=== PATIENT | female | born 1970 | race Caucasian/White ===

== ENCOUNTER 2018-07-24 19:02 | Emergency (ER) | payer OTHER ==
--- NOTE | 2018-07-24 19:36 | PDOC ---
Rapid Medical Evaluation Chief Complaint: Pain Time Seen by Provider: 07/24/18 19:34 Medical Evaluation: Allergies Allergy/AdvReac Type Severity Reaction Status Date / Time contrast Allergy Uncoded 06/03/16 09:45 07/24/18 19:35 I have performed a brief in-person evaluation of this patient. The patient presents with a chief complaint of:dysuria x 2 days. H/o HTN Pertinent physical exam findings:Unremarkable I have ordered the following:ua/cx/upreg The patient will proceed to the ED for further evaluation Discharge Disposition - Diagnosis Dysuria - Referrals - Patient Instructions - Post Discharge Activity
--- NOTE | 2018-07-24 20:18 | PDOC ---
History of Present Illness - General Chief Complaint: Pain Stated Complaint: ABD PAIN Time Seen by Provider: 07/24/18 19:34 - History of Present Illness Initial Comments: 07/24/18 20:17 47-year-old female without comorbidities presents for evaluation of dysuria times one week without systemic symptoms Past History - Past Medical History Allergies/Adverse Reactions: Allergies Allergy/AdvReac Type Severity Reaction Status Date / Time contrast Allergy Uncoded 07/24/18 19:36 Home Medications: Ambulatory Orders Labetalol HCl 100 mg PO ASDIR 07/24/18 Nitrofurantoin Monohyd/M-Cryst [Macrobid -] 100 mg PO BID #14 capsule 07/24/18 COPD: No - Surgical History Abdominal Surgery: Yes ([facility]) - Suicide/Smoking/Psychosocial Hx Smoking History: Never smoked Have you smoked in the past 12 months: No Information on smoking cessation initiated: No Hx Alcohol Use: No Drug/Substance Use Hx: No Substance Use Type: None Review of Systems - Review of Systems Constitutional: No: Fever : Yes: Dysuria *Physical Exam - Vital Signs Last Vital Signs Temp Pulse Resp BP Pulse Ox 98.4 F 61 18 122/82 100 07/24/18 19:33 07/24/18 19:33 07/24/18 19:33 07/24/18 19:33 07/24/18 19:33 - Physical Exam Comments: 07/24/18 20:17 HEAD: NC/AT EYES: Conjuntiva clear MS: Full ROM in all joints without edema NEUROLOGIC: No gross sensory or motor deficits, NVID SKIN: Normal color and temperature no lesions or rashes Moderate Sedation - Procedure Monitoring Vital Signs: Procedure Monitoring Vital Signs Temperature 98.4 F 07/24/18 19:33 Pulse Rate 61 07/24/18 19:33 Respiratory Rate 18 07/24/18 19:33 Blood Pressure 122/82 07/24/18 19:33 O2 Sat by Pulse Oximetry (%) 100 07/24/18 19:33 *DC/Admit/Observation/Transfer Diagnosis at time of Disposition: Dysuria, UTI (urinary tract infection) - Discharge Dispostion Disposition: HOME Condition at time of disposition: Stable Decision to Admit order: No - Prescriptions Prescriptions: Nitrofurantoin Monohyd/M-Cryst [Macrobid -] 100 mg PO BID #14 capsule - Referrals Referrals: Xiomara Quiros MD [Staff Physician] - - Patient Instructions Printed Discharge Instructions: Urinary Tract Infection Additional Instructions: Is take the antibiotic as directed return to the emergency room should symptoms worsen or go unresolved and follow-up with the primary care physician one to 2 days - Post Discharge Activity
[2018-07-24 20:21] VITALS: BP 122/82; PULSE 61; TEMP 98.4; BMI 22.2
[2018-07-24 20:27] LABS: URINE APPEARANCE SLCLOUDY; URINE BILIRUBIN NEGATIVE (<2.0 mg/dL); URINE COLOR YELLOW; URINE GLUCOSE (UA) NEGATIVE (NEGATIVE); URINE KETONE NEGATIVE (NEGATIVE); URINE LEUK ESTERASE NEGATIVE (NEGATIVE); URINE NITRITE POSITIVE (NEGATIVE); URINE PROTEIN NEGATIVE (NEGATIVE)
[2018-07-24 20:28] LABS: HCG,QUALITATIVE URINE Negative
[2018-07-24 20:53] LABS: EPI CELLS RARE /HPF (FEW); URINE BACTERIA RARE /hpf (NONE SEEN); URINE MUCUS FEW
== END 2018-07-24 20:59 | disposition home or self-care (01) ==
LOC: JERFT 19:02
DX: N39.0 Urinary tract infection, site not specified (principal); R30.0 Dysuria
CPT/HCPCS: 81003; 81015; 84703; 87086; 87186; 99281-25